=== PATIENT | female | born 1970 | race Caucasian/White ===

== ENCOUNTER 2019-07-30 12:02 | Emergency (ER) | payer SELFPAY ==
[2019-07-30 12:08] VITALS: BP 135/92; PULSE 61; TEMP 98; BMI 23.8
[2019-07-30] MEDS ORDERED: KETOROLAC TROMETHAMINE 60 MG/2 ML VIAL IM ONE (13:21)
--- NOTE | 2019-07-30 13:25 | PDOC ---
Attending Attestation - Resident Resident Name: Rusty Perez - ED Attending Attestation I have performed the following: I have examined & evaluated the patient, The case was reviewed & discussed with the resident, I agree w/resident's findings & plan - HPI HPI: 07/30/19 13:22 49y/o F h/o ovarian cysts requiring resection in the past, also with distant h/ o UTI and STI (treated) p/w acute onset of pelvic pain about 2h ago. pt in [facility] , eating normal diet, developed acute sharp pelvic pain without urgency/ dysuria. no vaginal discharge/bleeding, LMP 9/3 and normal. - Physicial Exam PE: 07/30/19 13:23 vss, urine preg negative overall well appearing, HD stable s1s2 rrr, ctab soft/nd. suprapubic and lower abd ttp without guarding/rebound, slight R CVAT no hernia, healed incisional vertical scar from cystectomy - Medical Decision Making 07/30/19 13:24 49y/o F with acute pelvic pain, HD stable and not . ? UTI v. renal colic , suspicion for ovarian cyst given history. less likely GI related, possible incisional hernia? labs, ua ctap w/o. if no stone, check pelvic u/s pain meds reassess
--- NOTE | 2019-07-30 13:29 | PDOC ---
History of Present Illness - General Chief Complaint: Pain, Acute Stated Complaint: ABD PAIN Time Seen by Provider: 07/30/19 12:30 History Source: Family Exam Limitations: No Limitations, Language Barrier - History of Present Illness Initial Comments: 07/30/19 13:24 HPI: 49yo F with PMH cyst requiring surgical removal presenting with abdominal pain starting at 10:40AM. Patient complains of intense, sudden onset, stabbing, non-radiating, suprapubic abdominal pain that began at 10:40AM. Patient denies prior episodes reporting no pain like this previously. She denies having ny medical problems, takes no medication, and has no known allergies. She denies dysuria, frequency, or foul smelling urine. Denies CP, SOB, changes in BMs, blood / dark BMs. Endorses severe nausea with the pain but denies having vomited. No recent illness, fevers or chills. No history of kidney stones. LMP: 06/25/19 NKDA Meds: Denies PMH: Denies PSH: Ovarian Cyst removal Past History - Travel Traveled outside of the country in the last 30 days: No Close contact w/someone who was outside of country & ill: No - Past Medical History Allergies/Adverse Reactions: Allergies Allergy/AdvReac Type Severity Reaction Status Date / Time No Known Allergies Allergy Verified 07/30/19 12:03 Home Medications: Ambulatory Orders NK [No Known Home Medication] 07/30/19 COPD: No Other medical history: OVARIAN CYSTS - Psycho Social/Smoking Cessation Hx Smoking History: Never smoked Hx Alcohol Use: No Drug/Substance Use Hx: No Review of Systems - Review of Systems Able to Perform ROS?: Yes (language barrier) Is the patient limited Polish proficient: No Constitutional: No: Chills, Fever, Malaise, Weakness HEENTM: No: Nose Congestion, Tinnitus, Throat Swelling, Mouth Pain Respiratory: No: Cough, Shortness of Breath, Wheezing Cardiac (ROS): No: Chest Pain, Irregular Heart Rate, Palpitations, Syncope, Chest Tightness ABD/GI: Yes: See HPI, Nausea. No: Abdominal Distended, Blood Streaked Bowels, Constipated, Diarrhea, Difficulty Swallowing, Poor Appetite, Poor Fluid Intake, Rectal Bleeding, Vomiting, Indigestion : No: Burning, Dysuria, Incontinence, Pain Musculoskeletal: Yes: Back Pain (dull low back pain). No: Muscle Pain, Muscle Weakness Integumentary: No: Lesions, Pruritus, Rash Neurological: No: Headache, Numbness, Tingling, Weakness Psychiatric: No: Emotional Problems, Change in Appetite Endocrine: No: Excessive Sweating, Intolerance to Cold, Intolerance to Heat, Increased Thirst, Increased Urine Hematologic/Lymphatic: No: Anemia, Blood Clots, Easy Bleeding All Other Systems: Reviewed and Negative *Physical Exam - Vital Signs Last Vital Signs Temp Pulse Resp BP Pulse Ox 98.0 F 61 16 135/92 100 07/30/19 12:03 07/30/19 12:03 07/30/19 12:03 07/30/19 12:03 07/30/19 12:03 - Physical Exam Comments: 07/30/19 13:31 Vitals reviewed, AFVSS WDWN woman, NAD, laying in hospital bed NCAT, MMM, EOMI RRR, nl s1/s2, no murmurs appreciated CTABL, normal WOB, no wheezes / rales / rhonchi Soft, TTP lower abdomen, more-so midline and LLQ, nondistended WWP, no clubbing / cyanosis / edema alert and oriented ED Treatment Course - ADDITIONAL ORDERS Additional order review: Laboratory Results 07/30/19 07/30/19 12:09 12:09 Urine Color Yellow Urine Appearance Clear Urine pH 6.0 Urine Protein Negative Urine Glucose (UA) Negative Urine Ketones Negative Urine Blood Trace-lysed Urine Nitrite Negative Urine Bilirubin Negative Urine Urobilinogen 0.2 Ur Leukocyte Esterase Negative Urine RBC 5-10 Urine WBC 0-2 Urine Bacteria Few Urine HCG, Qual Negative Medical Decision Making - Medical Decision Making 07/30/19 13:32 49yo F with PMH cyst requiring surgical removal presenting with acute suprapubic pain. History notable for sudden onset, absence of constitutional symptoms. Exam notable for suprapubic tenderness, normal vitals. DDX: Stone vs Torsion vs ruptured cyst vs UTI vs PID. -UA, UCx, UPreg -CTAP if UA with blood -If CT negative, plan for TVUS given HX of large ovarian cyst 07/30/19 14:22 -Pain improved with toradol -UA negative, pt at CT 07/30/19 16:11 -CTAP with 3cm left ovarian cyst -UCx sent, callback if positive -Plan for d/c home, f/u with OBGYN Discharge - Discharge Information Problems reviewed: Yes Clinical Impression/Diagnosis: Abdominal pain Qualifiers: Abdominal location: lower abdomen, unspecified Qualified Code(s): R10.30 - Lower abdominal pain, unspecified Condition: Stable Disposition: HOME - Admission No - Follow up/Referral Referrals: Christina Paulino MD [Staff Physician] - Diego Miller MD [Staff Physician] - - Patient Discharge Instructions Patient Printed Discharge Instructions: DI for Ovarian Cyst, DI for Abdominal Pain-Adult Additional Instructions: You were seen and evaluated in the [facility] for abdominal pain. You were found to have a 3cm cyst on your L ovary. Your pain is most likely due to this, or another ruptured cyst. Please continue to take over the counter pain medications (Motrin or Ibuprofen) for your pain as directed on the package. Follow up with your OBGYN or call the provided OBGYN first thing tomorrow morning for an appointment in the next 1-2 days. Return to the emergency room if you experience any new or concerning symptoms including but not limited to; pain not controlled by pain medication, persistent vomiting, fevers and chill. Usted fue visto y evaluado en el [facility] [place] por dolor abdominal. Se descubri que gloria un quiste de 3 cm en prince ovario L. Prince dolor probablemente se deba a esto u otro quiste roto. Contine tomando analgsicos de venta jenifer (Motrin o Ibuprofen) para prince dolor segn las instrucciones del paquete. Tony un seguimiento con prince OBG[facility] o llame al OBGYN provisto a primera hora de la maana para morgan jamal en los prximos 1-2 drew. Regrese a la jaclyn de emergencias si experimenta cualquier sntoma nuevo o preocupante, incluidos, entre otros; dolor no controlado por analgsicos, vmitos persistentes, fiebre y fro. - Post Discharge Activity
[2019-07-30] MEDS ORDERED: KETOROLAC TROMETHAMINE 60 MG/2 ML VIAL ONE (13:35)
--- NOTE | 2019-07-30 16:21 | PDOC ---
*Physical Exam - Vital Signs Last Vital Signs Temp Pulse Resp BP Pulse Ox 98.0 F 61 16 135/92 100 07/30/19 12:03 07/30/19 12:03 07/30/19 12:03 07/30/19 12:03 07/30/19 12:03 - Physical Exam Comments: 07/30/19 16:17 CAT scan shows no stones, hydronephrosis, mass, or other urinary tract abnormality. No sign of other abdominal or pelvic disease except for a prominent left ovarian cyst. Small number of red cells in the urine could indicate an impending manses, the patient being due at this time. Urine culture is sent to rule out occult infection. Referred to [facility] and urology for further evaluation. Ultrasound is deferred at this time pending evaluation by the patient's [facility]. She is instructed to seek follow-up within the next week, take Motrin or other anti-inflammatory for pain, and return to the emergency room if the pain becomes more severe or other symptoms develop. She is fully ambulatory and in no significant pain or other distress at discharge with family to follow-up as directed. ED Treatment Course - ADDITIONAL ORDERS Additional order review: Laboratory Results 07/30/19 07/30/19 12:09 12:09 Urine Color Yellow Urine Appearance Clear Urine pH 6.0 Urine Protein Negative Urine Glucose (UA) Negative Urine Ketones Negative Urine Blood Trace-lysed Urine Nitrite Negative Urine Bilirubin Negative Urine Urobilinogen 0.2 Ur Leukocyte Esterase Negative Urine RBC 5-10 Urine WBC 0-2 Urine Bacteria Few Urine HCG, Qual Negative - Medications Given in the ED: ED Medications Discontinued Medications Generic Name Dose Route Start Last Admin Trade Name Christophe PRN Reason Stop Dose Admin Ketorolac Tromethamine 60 mg 07/30/19 13:21 07/30/19 13:40 Toradol Injection - IM 07/30/19 13:22 60 mg ONCE ONE Administration Discharge - Discharge Information Problems reviewed: Yes Clinical Impression/Diagnosis: Abdominal pain Qualifiers: Abdominal location: lower abdomen, unspecified Qualified Code(s): R10.30 - Lower abdominal pain, unspecified Condition: Stable Disposition: HOME - Follow up/Referral Referrals: Christina Paulino MD [Staff Physician] - Diego Miller MD [Staff Physician] - - Patient Discharge Instructions Patient Printed Discharge Instructions: DI for Ovarian Cyst, DI for Abdominal Pain-Adult Additional Instructions: You were seen and evaluated in the [facility] for abdominal pain. You were found to have a 3cm cyst on your L ovary. Your pain is most likely due to this, or another ruptured cyst. Please continue to take over the counter pain medications (Motrin or Ibuprofen) for your pain as directed on the package. Follow up with your OBGYN or call the provided OBGYN first thing tomorrow morning for an appointment in the next 1-2 days. Return to the emergency room if you experience any new or concerning symptoms including but not limited to; pain not controlled by pain medication, persistent vomiting, fevers and chill. Usted fue visto y evaluado en el [facility] [place] por dolor abdominal. Se descubri que gloria un quiste de 3 cm en prince ovario L. Prince dolor probablemente se deba a esto u otro quiste roto. Contine tomando analgsicos de venta jenifer (Motrin o Ibuprofen) para prince dolor segn las instrucciones del paquete. Tony un seguimiento con prince OBG[facility] o llame al OBGYN provisto a primera hora de la maana para morgan jamal en los prximos 1-2 drew. Regrese a la jaclyn de emergencias si experimenta cualquier sntoma nuevo o preocupante, incluidos, entre otros; dolor no controlado por analgsicos, vmitos persistentes, fiebre y fro. - Post Discharge Activity
== END 2019-07-30 16:29 | disposition home or self-care (01) ==
LOC: FER 12:02
PROC: 3E0233Z Introduction of Anti-inflammatory into Muscle, Percutaneous Approach (ICD-10-PCS; principal; 2019-07-30)
DX: R10.30 Lower abdominal pain, unspecified (principal); N83.209 Unspecified ovarian cyst, unspecified side
CPT/HCPCS: 74176-TC; 81003; 81015; 84703; 87086; 99283-25